=== PATIENT | male | born 1980 | race Caucasian/White ===

== ENCOUNTER 2024-08-11 11:09 | Emergency (ER) | payer SELFPAY ==
[~2024-08-11] VITALS: Ht 182.9 cm; Wt 100.0 kg
[2024-08-11 11:18] VITALS: O2SAT 100
[2024-08-11 11:20] VITALS: BP 156/80; PULSE 83; RESP 18; TEMP 36.6; O2SAT 97
[2024-08-11] MEDS ORDERED: KETOROLAC 30MG/ML VIAL IM ONE (12:15)
[2024-08-11] MEDS: KETOROLAC 30MG/ML VIAL IM NR (13:43)
== END 2024-08-11 14:11 | disposition home or self-care (01) ==
LOC: ER 11:09
DX: M79.641 Pain in right hand (principal); W20.8XXA Other cause of strike by thrown, projected or falling object, initial encounter; Y93.89 Activity, other specified; Y92.89 Other specified places as the place of occurrence of the external cause; Y99.8 Other external cause status
CPT/HCPCS: 99283; 73130; 29125; 96372; J1885